=== PATIENT | female | born 1970 | race Caucasian/White ===

== ENCOUNTER 2021-01-18 11:04 | Day surgery (SDC) | payer OTHER | END 2021-01-18 18:10 | disposition home or self-care (01) | LOC: CIR.AMB 11:04 | PROVIDERS: ATTEND Obstetrics & Gynecology | DX: N84.0 Polyp of corpus uteri (principal); N84.1 Polyp of cervix uteri; Z20.822 Contact with and (suspected) exposure to COVID-19 ==